=== PATIENT | male | born 1945 | race Caucasian/White ===

== ENCOUNTER 2018-06-30 10:55 | Emergency (ER) | payer MEDICARE, SELFPAY ==
[2018-06-30] VITALS (9 sets, daily range): BP systolic 135–158; BP diastolic 63–92; PULSE 66–76; RESP 14–21; TEMP 36.6; O2SAT 94–98; BMI 32.5
--- NOTE | 2018-06-30 11:18 | RAD_ITS ---
STUDY: X-RAY CHEST REASON FOR EXAM: Male, 73 years old. Upper chest discomfort. TECHNIQUE: Single AP portable view of the chest. COMPARISON: None. FINDINGS: EKG electrodes are seen. The lungs are clear and expanded. There is no demonstrated pleural abnormality. Normal size heart. A left-sided dual-chamber pacemaker is seen. Normal mediastinum and elly. Normal visualized pulmonary arteries. There is atherosclerotic calcification of the aortic arch with tortuosity. There are diffuse degenerative changes of the visualized thoracic spine. Normal visualized ribs, clavicles, and shoulders. There is no demonstrated abnormality of the visualized soft tissue structures of the upper abdomen. RAD/Chest 1 View (Portable) IMPRESSION: No acute abnormality is seen. Electronically Signed: Yohannes Dolan MD at 12:30 EDT Tel [phone], Service support ,
--- NOTE | 2018-06-30 11:18 | EKG12_ITS ---
Test Reason : CP Blood Pressure : / mmHG Vent. Rate : 077 BPM Atrial Rate : 077 BPM P-R Int : 152 ms QRS Dur : 156 ms QT Int : 412 ms P-R-T Axes : 044 078 033 degrees QTc Int : 466 ms Normal sinus rhythm Right bundle branch block Abnormal ECG Confirmed by ESTEBAN SCHULZ ([id number]), editor & co founder BRANDEN SCOTT ([id number] on 07/04/2018 8:41:41 AM Referred By: BRITTANY/ANUM Confirmed By:ESTEBAN SCHULZ
[2018-06-30 11:28] LABS: Absolute Lymphocyte Count 1.95 X10^3/ul (0.83-4.51); Absolute Neutrophil Count 7.6 X10^3/uL (2.0-7.7); Basophil# 0.03 X10^3/uL; Basophil% 0.3 % (0-1); Eosinophil# 0.06 X10^3/uL; Eosinophils% 0.6 % (0-5); Hematocrit 42.6 % (40-54); Hemoglobin 15.3 g/dl (13.0-16.5); Lymphocyte # 1.95 X10^3/ul (4.0); Mean Corp Hgb Conc 35.9 g/gl (32-36); Mean Corpuscular Hgb 31.9 pg (27.0-32.0); Mean Corpuscular Volume 88.8 fL (80-94); Mean Platelet Vol. 10.1 fl (6.2-12.0); Monocyte# 0.61 X10^3/uL; Monocyte% 5.9 % (0-10); Neutrophil % 74.1 % (47-70); Platelet Count 170 K/mm3 (150-450); RBC Distribution Width CV 12.5 % (11.6-14.6); RBC Distribution Width SD 40.2 fl (35.1-43.9); White Blood Count 10.3 K/mm3 (4.4-11.0)
[2018-06-30 11:30] LABS: POSITIVE COUNT NO; POSITIVE DIFFERENTIAL NO; POSITIVE MORPHOLOGY NO
[2018-06-30] MEDS: Aspirin 81 MG TAB.CHEW 324 MG PO (11:31)
[2018-06-30 11:44] LABS: Anion Gap 7 (5-15); BUN 25 mg/dL (7-18); BUN/Creat Ratio 17.4 RATIO (10-20); Calcium,Total 8.8 mg/dL (8.5-10.1); Chloride 107 mmol/L (98-107); Creatinine, Serum 1.44 mg/dL (0.70-1.30); EST Glomerular Filtration Rate 51 mL/min (>60); Est Glom Filt Rate - Afr Amer 62 mL/min (>60); Estimated Creatinine Clearance 45.69 ml/min; Glucose 165 mg/dL (74-106); Potassium 4.8 mmol/L (3.5-5.1); Sodium Level 135 mmol/L (136-145)
--- NOTE | 2018-06-30 13:47 | ED.DCSUM_ITS ---
- ER Visit Summary Date of Service: 06/30/18 Chief Complaint: Chest pain History of Present Illness: The patient is a 73 M who presents with chest pain that has been waxing and waning over the past 2 days. Patient states the pain is worse at night. Patient describes the pain as burning. Patient states the pain is worse with laying flat. Patient states this feels similar to prior. Reflux disease. Patient does admit to some slight shortness of breath. Patient states he did have one episode of a mild sweat. Patient admits to a cough. Patient admits to some nausea and vomiting. Patient denies any palpitations. Patient denies any fevers. Physical Examination: Vital signs are stable. Patient is afebrile. Patient is in no acute distress. Oral mucosa is pink and moist. Neck is supple. Trachea is midline. There is no JVD or lymphadenopathy noted. Heart was regular rate and rhythm. Lungs are clear and equal bilateral. Abdomen is soft. Bowel sounds are normal. There is some mild epigastric tenderness. There is no rebound or guarding noted. Cranial nerves II through XII are intact. There are no focal motor or sensory deficits noted. The remaining physical exam is within normal limits. Test Results: EKG showed normal sinus rhythm with a rate of 77. There is right bundle branch block pattern noted. There are no acute ST or T wave changes. This was unchanged compared to previous EKG dated 03/15/2017. Portable chest x- ray does not show any acute cardiopulmonary process. CBC, basic metabolic profile, troponin were obtained and were all within normal limits. Emergency Department Course and Treatment: Patient was given a dose of aspirin here. Patient felt better on reevaluation. Patient has a NATHAN score of 2. Patient has a HEART score of 3. Patient was advised that this is low risk for acute cardiac event. Patient was instructed to start his Prilosec which she has at home. Patient understood and was agreeable with the plan. All questions were answered. Disposition: Discharge home Impression: Chest pain This note was generated with [employer] dictation software. It may contain incorrect words, spelling, and punctuation that were not noted in review of the chart prior to signing ED Disposition - Plan for ED Patient: Disposition: Home or Assisted Living Chief Complaint: Chest Pain Diagnosis: Chest pain Instructions: ED Chest Pain Atypical Unkn Cause Referrals: Cici Ravi DO [Primary Care Provider] -
== END 2018-06-30 13:55 | disposition home or self-care (01) ==
PROVIDERS: Emergency Provider Emergency Medicine; Family Provider Internal Medicine; PCP Internal Medicine
DX: R07.9 Chest pain, unspecified (principal); K21.9 Gastro-esophageal reflux disease without esophagitis; R06.00 Dyspnea, unspecified; R19.7 Diarrhea, unspecified; R61 Generalized hyperhidrosis; I45.10 Unspecified right bundle-branch block; E11.9 Type 2 diabetes mellitus without complications; I10 Essential (primary) hypertension; E78.00 Pure hypercholesterolemia, unspecified; Z95.0 Presence of cardiac pacemaker; Z79.82 Long term (current) use of aspirin; Z79.84 Long term (current) use of oral hypoglycemic drugs; Z79.899 Other long term (current) drug therapy
CPT/HCPCS: 71045; 80048; 84484; 85025; 93005; 99284; A4216

== ENCOUNTER 2019-03-21 16:29 | Outpatient (RCR) | payer MEDICARE, SELFPAY | END 2019-03-21 23:59 | disposition home or self-care (01) | LOC: DC 16:29 | PROVIDERS: Family Provider Internal Medicine; PCP Internal Medicine; Visit Provider Internal Medicine | DX: E11.22 Type 2 diabetes mellitus with diabetic chronic kidney disease (principal); N18.9 Chronic kidney disease, unspecified; Z71.3 Dietary counseling and surveillance | CPT/HCPCS: G0108 ==

== ENCOUNTER → 2019-05-17 11:37 | Outpatient (CLI) | payer MEDICARE, SELFPAY ==
[2018-06-30 10:56] VITALS: BMI 32.5
--- NOTE | 2019-05-17 11:42 | RAD_ITS ---
STUDY: X-RAY CHEST REASON FOR EXAM: Male, 74 years old. Shortness of breath/dyspnea. TECHNIQUE: PA and lateral views of the chest. COMPARISON: Comparison is made with prior study dated June 30, 2018. FINDINGS: Stable elevation of the right hemidiaphragm. There is no demonstrated pleural abnormality. Normal size heart. A left-sided dual-chamber pacemaker is seen. This is unchanged. Normal mediastinum and elly. Normal visualized pulmonary arteries. There is atherosclerotic calcification of the aortic arch with tortuosity. There are diffuse degenerative changes of the visualized thoracic spine. Normal visualized ribs, clavicles, and shoulders. There is no demonstrated abnormality of the visualized soft tissue structures of the upper abdomen. RAD/Chest PA and Lateral IMPRESSION: No acute abnormality is seen. Electronically Signed: Yohannes Dolan, at 12:26 EDT , Service support ,
[2019-05-17 13:34] LABS: BNP,B-Type NATRIURETIC PEPTIDE 23.6 pg/mL (0-100)
[2019-05-18 14:08] LABS: Creatine Kinase MB 0 % (0-3); Creatine Kinase MM 100 % (97-100); Creatine Kinase,Total,Serum 109 U/L (24-204); Macro I 0 % (Not Observed); Macro II 0 % (Not Observed)
[2019-05-21 12:28] LABS: Myoglobin, Serum 94 ng/mL (28-72)
[2019-05-21 13:35] LABS: Creatine Kinase BB 0 % (0)
== END ==
PROVIDERS: Family Provider Internal Medicine; PCP Internal Medicine; Referring Provider Internal Medicine; Visit Provider Internal Medicine
DX: R06.02 Shortness of breath (principal)
CPT/HCPCS: 71046; 82550; 82552; 83874; 83880; 84484

== ENCOUNTER → 2019-05-21 08:50 | Outpatient (CLI) | payer MEDICARE, SELFPAY ==
[2018-06-30 10:56] VITALS: BMI 32.5
--- NOTE | 2019-05-21 08:52 | US_ITS ---
STUDY: RENAL ULTRASOUND - COMPLETE REASON FOR EXAM: Male, 74 years old. Stage III chronic kidney disease. TECHNIQUE: Ultrasound evaluation of the kidneys was performed with real-time and static cohen-scale imaging. COMPARISON: None. FINDINGS: RIGHT KIDNEY: Normal location of the right kidney, which is low normal in size. The right kidney measures 9.0 cm. There is a normal cortex of the right kidney. The renal cortex measures 1.0 cm. There is a 1.1 x 0.9 x 0.7 cm cyst in the upper pole. Also in the upper pole is a 1.2 x 1.1 x 1.0 cm simple cyst. There are multiple echogenic foci foci with shadowing suggesting renal calculi. The largest measures 6 mm in diameter. There is no right hydronephrosis. DISTAL RIGHT URETER: There is non-visualization of the distal right ureter. There is no demonstrated right ureterovesical junction calculus. There is a visualized right ureteral jet. LEFT KIDNEY: Normal location of the left kidney, which is normal in size. The left kidney measures 9.4 cm. There is a normal cortex of the left kidney. The renal cortex measures 1.2 cm. There is a 1.2 x 1.1 x 1.1 cm simple cyst in the upper pole. Also in the upper pole is a 1.1 x 1.1 x 0.8 cm cyst. There are no left renal calculi. There is no left hydronephrosis. DISTAL LEFT URETER: There is non-visualization of the distal left ureter. There is no demonstrated left ureterovesical junction calculus. There is a visualized left ureteral jet. BLADDER: The poorly distended urinary bladder has a volume of 29 ml. There is circumferential wall thickening. There is no demonstrated mass within the urinary bladder. There are no demonstrated bladder calculi. The prostate measures 5.5 x 5.5 x 4.3 cm. US/Kidney and Bladder IMPRESSION: 1. Bilateral renal cysts. 2. Multiple nonobstructing right renal calculi. 3. Poorly distended urinary bladder without marked abnormality. 4. Enlarged prostate. Electronically Signed: Vlad Spence DO at 18:02 EDT Tel [phone], Service support ,
== END ==
PROVIDERS: Family Provider Internal Medicine; PCP Internal Medicine; Referring Provider Internal Medicine; Visit Provider Internal Medicine
DX: N18.3 Chronic kidney disease, stage 3 (moderate) (principal)
CPT/HCPCS: 76770

== ENCOUNTER → 2019-06-20 13:10 | Outpatient (CLI) | payer MEDICARE, SELFPAY ==
[2018-06-30 10:56] VITALS: BMI 32.5
--- NOTE | 2019-06-20 13:13 | ECHOCS_ITS ---
Reason For Study: SOB Procedure This was a 2D Doppler, Color Flow transthoracic echocardiogram. Contrast injection was performed. The study was technically difficult. Exam performed in department. Left Ventricle Normal size and thickness. The estimated ejection fraction is 65 %. Stage 1 diastolic dysfunction. No regional wall motion abnormalities noted. Right Ventricle Mildly dilated right ventricle. ICD or pacer leads identified within the right ventricle. Normal systolic function. Atria Normal left atrium. Normal right atrium. Normal atrial septum. Mitral Valve The mitral valve is structurally normal. No prolapse or stenosis seen. Tricuspid Valve Normal tricuspid valve. Trivial tricuspid valve insufficiency. Right ventricular systolic pressure estimated to be 24 mmHg. Aortic Valve Normal aortic valve. Trisinus/trileaflet aortic valve. Pulmonic Valve The pulmonic valve is not well visualized. Great Vessels Normal aortic root. Normal arch. Normal inferior vena cava. Inferior vena cava collapse with sniff. Pericardium/Pleural No pericardial effusion. Medication 22 gauge I.V. with prn adaptor inserted into right arm. Diluted definity 5ml given slow IV push to enhance endocardial definition. MMode/2D Measurements & Calculations LVIDd: 4.0 cm IVSd: 1.1 cm LA dimension: 3.9 cm LVIDs: 2.0 cm LVPWd: 1.2 cm FS: 49.4 % LAV(MOD-sp2): 32.6 ml Time Measurements MV dec time: 0.35 sec Doppler Measurements & Calculations MV E max david: 49.2 cm/sec Lat Peak E' David: 6.5 cm/sec Med Peak E' David: 4.7 cm/sec MV A max david: 68.4 cm/sec E/E' lat: 7.5 E/E' med: 10.4 MV E/A: 0.72 MV V2 max: 71.2 cm/sec MV P1/2t max david: 51.8 cm/sec Ao V2 max: 111.1 cm/sec MV max P.0 mmHg MV P1/2t: 117.4 msec Ao max P.9 mmHg MV V2 mean: 36.1 cm/sec Ao V2 mean: 71.2 cm/sec MV mean P.59 mmHg MV dec slope: 129.1 cm/sec2 Ao mean P.3 mmHg MV V2 VTI: 19.4 cm MVA(P1/2t): 1.9 cm2 Ao V2 VTI: 20.5 cm LV V1 max: 83.8 cm/sec PA V2 max: 98.2 cm/sec TR max david: 196.2 cm/sec LV V1 max P.8 mmHg TR max P.4 mmHg LV V1 mean P.3 mmHg LV V1 mean: 51.5 cm/sec LV V1 VTI: 16.1 cm Interpretation Summary The estimated ejection fraction is 65 %. Stage 1 diastolic dysfunction. Mildly dilated right ventricle. Trivial tricuspid valve insufficiency. Right ventricular systolic pressure estimated to be 24 mmHg. Compared to echo report dated 05/19/2016, no appreciable changes noted. The study was technically difficult. Contrast injection was performed. Ordering Physician: Prudence Montanez Referring Physician: Cici Ravi M.D. Performed By: Sd Estrada RCS
== END ==
PROVIDERS: Family Provider Internal Medicine; PCP Internal Medicine; Referring Provider Nurse Practitioner; Visit Provider Nurse Practitioner
DX: R06.02 Shortness of breath (principal)
CPT/HCPCS: 93306; Q9957; A4216; C8929

== ENCOUNTER → 2019-06-22 06:29 | Outpatient (CLI) | payer MEDICARE, SELFPAY ==
[2018-06-30 10:56] VITALS: BMI 32.5
--- NOTE | 2019-06-22 09:22 | STRESSREP ---
Stress Test Report Date: 06-22-19 Procedure: Pharmacologic stress nuclear imaging study Indications: This of breath/fatigue; permanent pacemaker Consent: Per the patient Procedure: The patient underwent pharmacologic (Regadenoson) evaluation with a peak heart rate of 97 beats per minute (66 %predicted maximal heart rate) and a peak blood pressure of 122/84 mmHg. The baseline ECG demonstrated chronic atrial pacemaker; right bundle branch block pattern. The peak pharmacologic ECG demonstrated sinus rhythm with a right bundle branch block pattern. There were no cardiac dysrhythmias pretest, during pharmacologic infusion, or recovery. There was no complaint of chest discomfort during pharmacologic infusion or recovery. The examination was discontinued secondary to completion of protocol. Impression: 1. Pharmacologic (Regadenoson) evaluation 2. Peak pharmacologic ECG with sinus rhythm with a right bundle branch block pattern. 3. There were no cardiac dysrhythmias pretest, during pharmacologic infusion, or recovery. 4. Nuclear images pending Myocardial perfusion imaging study: Technique: The patient was injected with 15.0 millicuries of technetium 99m Cardiolite and subsequently rest SPECT Cardiolite nuclear imaging was obtained in the horizontal long, vertical long, and short axis views. The patient underwent pharmacologic (Regadenoson) evaluation with a peak heart rate of 97 beats per minute (66 % percent predicted maximal heart rate) and a peak blood pressure of 122/84 mmHg. The patient was injected with 44.0 millicuries of technetium 99m Cardiolite and subsequently stress SPECT Cardiolite nuclear imaging was obtained in the horizontal long, vertical long, and short axis views. A gated Cardiolite study at peak stress was obtained. Interpretation: Rest and stress SPECT Cardiolite nuclear imaging status post realignment, normalization, and attenuation correction demonstrate relative uniform tracer uptake and myocardial perfusion appearing within normal limits. There is end systolic thickening and brightening. The gated Cardiolite study demonstrates myocardial thickening and inward wall motion. The reported LVEF is 78 %. Impression: 1. Rest and stress SPECT Cardiolite nuclear imaging demonstrate relative uniform tracer uptake and myocardial perfusion appearing within normal limits. 2. The gated Cardiolite study reports an LVEF of 78 %. This note was generated with [employer] software. It may contain incorrect words, spelling, and punctuation that were not noted in checking the note before signing.
== END ==
PROVIDERS: Family Provider Internal Medicine; PCP Internal Medicine; Referring Provider Internal Medicine; Visit Provider Internal Medicine
DX: R07.9 Chest pain, unspecified (principal); R06.02 Shortness of breath; R68.89 Other general symptoms and signs
CPT/HCPCS: 78452; 93017; A9500; A4216; J2785

== ENCOUNTER → 2020-02-15 | Outpatient (CLI) | payer MEDICARE, SELFPAY ==
[2018-06-30 10:56] VITALS: BMI 32.5
[2020-02-15 11:16] LABS: Potassium 4.6 mmol/L (3.5-5.1)
== END | disposition home or self-care (01) ==
LOC: LABSPEC 10:58
PROVIDERS: PCP Internal Medicine; Referring Provider Internal Medicine; Visit Provider Internal Medicine
DX: E87.5 Hyperkalemia (principal)
CPT/HCPCS: 84132

== ENCOUNTER → 2021-06-18 13:53 | Outpatient (CLI) | payer MEDICARE, SELFPAY ==
--- NOTE | 2021-06-18 14:20 | CT_ITS ---
STUDY: LOW DOSE CT LUNG CANCER SCREENING REASON FOR EXAM: Male, 76 years old. History of smoking 1 pack per day for 30 years. COPD. RADIATION DOSAGE (If Supplied By Facility): CTDIvol = ( 3.02 ) mGy, DLP = ( 113.62 ) mGycm TECHNIQUE: No contrast was administered. Low dose technique was utilized (average mAS-38 and kVp 120). 1.25 mm axial source images with a slice interval of 1.25-mm were reconstructed in lung windows. 2.5 mm axial source images with a slice interval of 2.5-mm were reconstructed in lung windows. 5.0 mm axial source images with a slice interval of 5.0-mm were reconstructed in soft tissue windows. Nodule measured using lung windows on PACS and/or independent workstation with automated measurement of minimum and maximum diameter. Nodule measurement reported as average diameter rounded to the nearest whole number. Growth is defined as an increase ins size of greater than 1.5 mm. COMPARISON: None. NODULES: No suspicious nodules are seen. Emphysema: Mild degree of emphysematous changes. Focal linear scarring in the anterior aspect of the right lower lobe as well as in the left lower lobe. Endobronchial lesion: None Aorta: Atherosclerotic plaque formation. Coronary arteries: Coronary artery calcification. Heart: A left-sided dual-chamber pacemaker is seen. Pulmonary artery: Unremarkable. Mediastinal nodes: Small mediastinal lymph nodes Other chest and abdominal findings: Degenerative changes of the thoracic spine. CT/Low Dose CT Lung Screening IMPRESSION: Lung-RADS category 2 - Continue annual screening with LDCT in 12 months. IMPORTANT NOTES FOR USE: ACR Lung-RADS Version 1.1 Assessment Categories Release Date: 2018 Category: Coded 0-4 bases on nodule(s) with highest degree of suspicion. Negative screen is defined as categories 1 and 2; a positive screen is defined as categories 3 and 4. Category 3 and 4A nodules that are unchanged on interval CT should be coded as category 2, and individuals returned to screening in 12 months. Category 4X: Category 3 or 4 nodules with additional imaging findings that increase the suspicion of lung cancer, such as spiculation, GGN that doubles in size in 1 year, enlarged lymph notes, etc. Category Modifiers: S (significant finding unrelated to lung cancer) Electronically Signed: Yohannes Dolan MD at 15:46 EDT , Service support ,
== END ==
LOC: CT 13:58
PROVIDERS: PCP Internal Medicine; Referring Provider Internal Medicine; Visit Provider Internal Medicine
DX: Z87.891 Personal history of nicotine dependence (principal)
CPT/HCPCS: 71271

== ENCOUNTER 2021-07-28 16:47 | Outpatient (CLI) | payer MEDICARE, SELFPAY ==
[2021-07-28] MEDS: 0.9% Saline Lock 10 ML Syringe IV (17:02)
[2021-07-28 17:04] VITALS: BP 149/90; PULSE 59; RESP 16; TEMP 37.3; O2SAT 99; BMI 28.8
[2021-07-28 18:25] VITALS: BP 132/63; PULSE 60; RESP 16; TEMP 37.8; O2SAT 95
[2021-07-28 19:22] VITALS: BP 131/68; PULSE 60; RESP 16; TEMP 37.9; O2SAT 98
== END 2021-07-28 19:23 | disposition home or self-care (01) ==
LOC: MS3OUT 16:47 → MS3 16:48
PROVIDERS: PCP Internal Medicine; Referring Provider Nurse Practitioner Adult Health; Visit Provider Nurse Practitioner Adult Health
DX: Z23 Encounter for immunization (principal); U07.1 COVID-19
CPT/HCPCS: J7050; M0245; Q0245; A4216

== ENCOUNTER 2021-10-16 11:52 | Outpatient (CLI) | payer MEDICARE, SELFPAY ==
--- NOTE | 2021-10-16 11:55 | US_ITS ---
STUDY: RENAL ULTRASOUND - COMPLETE REASON FOR EXAM: Male, 76 years old. CKD TECHNIQUE: Ultrasound evaluation of the kidneys was performed with real-time and static cohen-scale imaging. COMPARISON: 916.19 FINDINGS: RIGHT KIDNEY: with mild renal atrophy. The right kidney measures 7.7x4.9 cm. The renal cortex measures 1.1 cm. Echogenic. There is no right renal mass or cyst. There are no right renal calculi. There is no right hydronephrosis. DISTAL RIGHT URETER: There is non-visualization of the distal right ureter. There is no demonstrated right ureterovesical junction calculus. There is no demonstrated right ureteral jet. LEFT KIDNEY: Normal location of the left kidney, which is normal in size. The left kidney measures 9.4x6.3 cm. The renal cortex measures 1.3 cm. Echogenic. There is a cyst of the left kidney measuring in mm: 13. There are no left renal calculi. There is no left hydronephrosis. DISTAL LEFT URETER: There is non-visualization of the distal left ureter. There is no demonstrated left ureterovesical junction calculus. There is no demonstrated left ureteral jet. AORTA: There is obscuration of the abdominal aorta by overlying bowel gas Prostate gland measures 44 cc. I.V.C.: It is not visualized. There is too much overlying bowel gas. BLADDER: The distended urinary bladder has a volume in cc of 159. There is a normal wall thickness of the distended urinary bladder. There is no demonstrated mass within the urinary bladder. There are no demonstrated bladder calculi. US/Kidney and Bladder IMPRESSION: Echogenic kidneys are suggestive of chronic medical renal disease. There is hypoechoic foci of the left kidney. These are consistent for cysts. No follow up required. Electronically Signed: Andrea Holliday MD at 18:00 EST ,
== END 2021-10-16 23:59 | disposition home or self-care (01) ==
LOC: US 11:53
PROVIDERS: PCP Internal Medicine; Referring Provider Internal Medicine; Visit Provider Internal Medicine
DX: N18.30 Chronic kidney disease, stage 3 unspecified (principal)
CPT/HCPCS: 76770

== ENCOUNTER → 2023-12-22 | Outpatient (CLI) | payer MEDICARE, SELFPAY ==
[2023-12-22 18:16] LABS: Albumin, Serum 3.9 g/dL (3.2-5.0); BUN 13 mg/dL (7-18); BUN/Creat Ratio 7.9 RATIO (10-20); Calcium,Total 9.3 mg/dL (8.5-10.1); Chloride 108 mmol/L (98-107); Creatinine, Serum 1.65 mg/dL (0.70-1.30); EST Glomerular Filtration Rate 43 mL/min (>60); Est Glom Filt Rate - Afr Amer 52 mL/min (>60); Glucose 154 mg/dL (74-106); Phosphorus 3.2 mg/dL (2.5-4.9); Potassium 3.9 mmol/L (3.5-5.1); Sodium Level 138 mmol/L (136-145)
[2023-12-26 15:08] LABS: PROEL- A/G Ratio 1.4 (0.7-1.7); PROEL- Albumin 3.9 g/dL (2.9-4.4); PROEL- Alpha-1 Globulin 0.2 g/dL (0.0-0.4); PROEL- Alpha-2 Globulin 0.6 g/dL (0.4-1.0); PROEL- Beta Globulin 1.1 g/dL (0.7-1.3); PROEL- Gamma Globulin 0.9 g/dL (0.4-1.8); PROEL- Globulin, Total 2.7 g/dL (2.2-3.9); PROEL- TOTAL PROTEIN 6.6 g/dL (6.0-8.5); PROEL-M-Spike Not Observed g/dL (Not Observed)
== END | disposition home or self-care (01) ==
LOC: MTLAB 14:23
PROVIDERS: PCP Internal Medicine; Referring Provider Internal Medicine Nephrology; Visit Provider Internal Medicine Nephrology
DX: N18.32 Chronic kidney disease, stage 3b (principal); R80.9 Proteinuria, unspecified
CPT/HCPCS: 36415; 80069; 82043; 82570; 84156; 84165

== ENCOUNTER → 2024-12-10 | Outpatient (CLI) | payer MEDICARE, SELFPAY ==
[2024-12-10 18:08] LABS: Albumin, Serum 4.3 g/dL (3.4-4.8); Anion Gap 13 (5-15); BUN 28 mg/dL (4-19); BUN/Creat Ratio 15.9 RATIO (10-20); Calcium,Total 9.7 mg/dL (7.6-11.0); Carbon Dioxide 19.7 mmol/L (21.0-32.0); Chloride 108 mmol/L (98-108); Creatinine, Serum 1.74 mg/dL (0.70-1.20); EST Glomerular Filtration Rate 39 (>60); Glucose 130 mg/dL (70-99); Phosphorus 3.7 mg/dL (2.7-4.5); Potassium 4.4 mmol/L (3.3-5.1); Sodium Level 140 mmol/L (133-145)
[2024-12-10 19:01] LABS: Microalbumin,Random Urine 21.3 mg/L (NO RANGE EST.); Microalbumin:Creatinine Ratio 173.2 mg/g CRE; Protein, Urine (Random) 14.1 mg/dL (0.0-12.0); Protein:Creat Ratio 115 mg/g CRE (0-200)
== END | disposition home or self-care (01) ==
LOC: MTLAB 14:05
PROVIDERS: PCP Internal Medicine; Referring Provider Internal Medicine Nephrology; Visit Provider Internal Medicine Nephrology
DX: N18.32 Chronic kidney disease, stage 3b (principal); R80.9 Proteinuria, unspecified
CPT/HCPCS: 36415; 80069; 82043; 82570; 84156

== ENCOUNTER → 2025-08-16 | Outpatient (CLI) | payer MEDICARE, SELFPAY ==
[2025-08-16 15:13] LABS: Hematocrit 46.6 % (40-54); Hemoglobin 16.0 g/dL (13.0-16.5); Immature Granulocytes Count 0.010 X10^3/uL (0.0-0.0); Mean Corp Hgb Conc 34.3 g/dL (32-36); Mean Corpuscular Volume 90.7 fL (80-94); Mean Platelet Vol. 10.2 fl (6.2-12.0); NRBC Flagged by Analyzer 0 % (0-5); Platelet Count 143 K/mm3 (150-450); RBC Distribution Width CV 12.7 % (11.6-14.6); RBC Distribution Width SD 41.5 fl (35.1-43.9); Red Blood Count 5.14 M/mm3 (4.6-6.2); White Blood Count 6.4 K/mm3 (4.4-11.0)
[2025-08-16 15:54] LABS: AST(SGOT) 27 U/L (<=37); Alanine Aminotransfer ALT/SGPT 35 U/L (<=46); Albumin, Serum 4.2 g/dL (3.4-4.8); Alkaline Phosphatase 103 U/L (40-129); Anion Gap 11 (5-15); BUN 15 mg/dL (4-19); BUN/Creat Ratio 10.3 RATIO (10-20); Calcium,Total 9.3 mg/dL (7.6-11.0); Carbon Dioxide 22.5 mmol/L (21.0-32.0); Chloride 105 mmol/L (98-108); Cholesterol 111 mg/dL (<=200); Globulin 2.8 g/dL (2.2-4.2); Glucose 158 mg/dL (70-99); Low Density Lipoprotein Calc. 48 mg/dL; Potassium 4.0 mmol/L (3.3-5.1); Triglycerides 108 mg/dL; Very Low Density Lipoprotein 22 mg/dL (5-40); cholesterol:hdl ratio screen 2.61
[2025-08-16 15:55] LABS: Vitamin B12 310 pg/mL (180-914); Vitamin D,25 Hydroxy 44.8 ng/mL (30-100)
== END | disposition home or self-care (01) ==
LOC: CIMLAB 11:48
PROVIDERS: PCP Internal Medicine; Referring Provider Internal Medicine; Visit Provider Internal Medicine
DX: E55.9 Vitamin D deficiency, unspecified (principal); I10 Essential (primary) hypertension; R53.83 Other fatigue
CPT/HCPCS: 36415; 80053; 80061; 82306; 82607; 84443; 85025